=== PATIENT | female | born 1995 | race Caucasian/White ===

== ENCOUNTER → 2018-02-10 | Outpatient (CLI) | payer BC ==
--- NOTE | 2018-02-10 11:22 | RADIOLOGY IMAGING REPORT ---
FACILITY: [facility] - [place] PATIENT NAME: Valeriy Maharaj : 1995 MR: [id number] V: [id number] EXAM DATE: ORDERING PHYSICIAN: RAMON VEE TECHNOLOGIST: Location: [facility] Patient: Valeriy Maharaj : 1995 Visit/Account:[id number] Date of Sevice: 02/10/2018 ABDOMEN/PELVIS W/O CONTRAST HISTORY: Right flank pain and hematuria TECHNIQUE: Axial images acquired through the abdomen/pelvis. Coronal and sagittal reformatting also performed. No IV contrast administered. Dose Lowering Technique One of the following dose optimization techniques was utilized in the performance of this exam: Autom ated exposure control; adjustment of the mA and/or kV according to the patient's size; or use of an i terative reconstruction technique. Specific details can be referenced in the facility's radiology C T exam operational policy. COMPARISON: None. FINDINGS: Visualized lung bases: Negative. Hepatobiliary: Negative. Spleen: Negative. Adrenals: Negative. Pancreas: Negative. Kidneys ureters and bladder: There is moderate right hydronephrosis secondary to a 3 x 4 mm calcifica tion in the proximal right ureter just beyond the right UPJ Genitalia: Retroverted uterus GI: Negative. Vessels/spaces/nodes: Negative. Bones/soft tissues: Negative. Additional findings: None pertinent. IMPRESSION: There is a moderate right hydronephrosis secondary to a 3 x 4 mm calcification in the proximal right ureter just beyond the right UPJ Report Dictated By: Maribel Goddard MD at 02/10/2018 11:13 AM Report E-Signed By: Maribel Goddard MD at 02/10/2018 11:17 AM WSN:[email or web address]
== END ==
LOC: CT 09:20
PROVIDERS: ATTEND Nurse Practitioner Family
DX: N13.2 Hydronephrosis with renal and ureteral calculous obstruction (principal)
CPT/HCPCS: 74176

== ENCOUNTER → 2018-03-15 | Outpatient (CLI) | payer BC ==
--- NOTE | 2018-03-15 14:45 | RADIOLOGY IMAGING REPORT ---
[place] [facility] [place] Valeriy Maharaj : 1995 MR: [id number] V: [id number] EXAM DATE: ORDERING PHYSICIAN: KIRAN CHIN TECHNOLOGIST: Location: [facility] [place] Patient: Valeriy Maharaj : 1995 Visit/Account:[id number] Date of Sevice: 03/15/2018 ABDOMEN PELVIS ESWL CYSTO W/O HISTORY: Right-sided kidney stones TECHNIQUE: Axial images acquired through the abdomen/pelvis. Coronal and sagittal reformatting also performed. No IV contrast administered. Dose Lowering Technique One of the following dose optimization techniques was utilized in the performance of this exam: Autom ated exposure control; adjustment of the mA and/or kV according to the patient's size; or use of an i terative reconstruction technique. Specific details can be referenced in the facility's radiology C T exam operational policy. COMPARISON: February 10, 2018 FINDINGS: Visualized lung bases: Negative. Hepatobiliary: The liver is incompletely imaged however no gross abnormality seen Spleen: Spleen is not increased is not entirely imaged on the study. There is a 1.2 cm hypoattenuat ing lesion anterior aspect of the spleen appears stable and may represent a small hemangioma Adrenals: Negative. Pancreas: Negative. Kidneys ureters and bladder: There is no demonstration of urolithiasis, hydronephrosis or hydroureter . Genitalia: The right ovarian cyst measuring 3.6 cm in diameter GI: There is a moderate amount of fecal material seen throughout colon which can be seen with consti pation Vessels/spaces/nodes: Negative. Bones/soft tissues: Negative. Additional findings: None pertinent. IMPRESSION: No demonstration of urolithiasis, hydronephrosis or hydroureter at this time There is now a right ovarian cyst measuring 3.6 cm in diameter There is a moderate amount of fecal material throughout colon which can be seen with constipation Additional chronic findings Report Dictated By: Maribel Goddard MD at 03/15/2018 2:31 PM Report E-Signed By: Maribel Goddard MD at 03/15/2018 2:40 PM WSN:[email or web address]
== END ==
LOC: CT 06:47
PROVIDERS: ATTEND Urology
DX: N83.201 Unspecified ovarian cyst, right side (principal); K59.00 Constipation, unspecified
CPT/HCPCS: 74176